=== PATIENT | female | born 1930 | race Caucasian/White ===

== ENCOUNTER → 2016-06-11 | Outpatient (CLI) | payer MEDICARE ==
[~2016-06-11] MED LIST: AMLODIPINE BESYL5 MG PO; ARIMIDEX1 MG PO; ASPIRIN PO; ASPIRIN81 M1 PO; ASPIRIN81 MG PO; ATENOLOL PO; AVALIDE 300-12.1 TAB PO; AVALIDE PO; AVANDIA PO; CALCIUM + D PO; CRESTOR PO; EYE VITAMIN PO; FISH OIL 1,2001 EAC2 PO; FLAGYL PO; GLUCOPHAGE XR500 MG PO; ICAPS MV TAB1 TAB.EC PO; IMDUR PO; IMDUR-ER30 MG PO; LEVOTHYROXINE88 MCG PO; LORTAB 5/500 TA1 TA2 PO; LOSARTAN POTAS100 MG PO; LOVASTATIN20 MG PO; METFORMIN HCL500 M1 PO; NEURONTIN PO; NEURONTIN600 MG PO; NEXIUM PO; NORVASC PO; PLAVIX PO; SYNTHROID PO; VITAMIN D1000 UNI1 PO; VITAMIN D50000 UNIT PO; [UNRECOGNIZED DRUG - OTHER] PO
--- NOTE | ~2016-06-11 | NM8 ---
[facility] A Service of [facility] RADIOLOGY TEXT RESULTS PATIENT: LUI HURLEY LOCATION: [facility] : [birth year] UNIT #: [id number] AGE: [address]: Teresita Toth MD SEX: F ORDER DR: [id number] [facility] [address] [place], [place] [address] [id number] O MR#: [id number] Acc #: [id number] NAME: LUI HURLEY : 1930 SEX: F STUDY DATE/TIME: 06/11/2016 9:47 UNIT: [facility] ROOM: STUDY DESCRIPTION: NM Bone or Joint Whole Body Attending Physician: Teresita Toth M.D. Referring Physician: Teresita Toth M.D. Ordering Physician: Teresita Toth M.D. Primary Care Physician: Teresita Toth M.D. MEDICAL IMAGING REPORT This report is preliminary unless electronic signature is present EXAM Whole-body bone scan. HISTORY 85-year-old female right leg pain for 3-4 weeks. Pain predominately around the hip and femoral head region. Difficulty moving leg. Symptoms for 3-4 weeks. History of breast cancer diagnosed several years ago. COMPARISON No recent correlative images are available. Comparison is made to a lumbar spine series 01/01/2014. FINDINGS Three-phase bone scan was performed over the hips and pelvis following the intravenous administration of 24 mCi technetium 99m MDP. Examination demonstrates some normal symmetric flow to the hips and pelvis. Immediate blood-pool imaging also appears normal. Delayed-phase imaging demonstrates activity within the bladder and a small amount of urinary contamination in the pelvic region. No definite osseous uptake is identified. No abnormal uptake identified within the hips. Minimal degenerative uptake within the posterior elements of the lumbar spine which does correspond to facet arthropathy as noted on the patient's prior conventional radiographs. IMPRESSION 1. No abnormal uptake identified within the right hip or pelvic region to account the patient's right-sided pain. 2. Mild degenerative uptake lower lumbar spine. Please note the patient does have significant multilevel facet arthropathy lower lumbar spine and 1 would question whether this could be a contributing factor to the patient's symptoms. [facility] A Service of [facility] RADIOLOGY TEXT RESULTS PATIENT: LUI HURLEY LOCATION: [facility] : [birth year] UNIT #: [id number] AGE: [address]: Teresita Toth MD SEX: F ORDER DR: Dictated by... Александр Lincoln M.D. THIS IS AN ELECTRONICALLY VERIFIED REPORT Александр Lincoln M.D. at 06/13/2016 4:53 PM RAMA/darien TD: 06/13/2016 10:46 JOB #: [id number] MEDICAL IMAGING REPORT COPY
== END | disposition home or self-care (01) ==
LOC: CNUC 08:52
DX: M25.559 Pain in unspecified hip (principal); M79.659 Pain in unspecified thigh; M47.816 Spondylosis without myelopathy or radiculopathy, lumbar region
CPT/HCPCS: 78306; A9503

== ENCOUNTER → 2016-07-23 | Outpatient (CLI) | payer MEDICARE ==
--- NOTE | ~2016-07-23 | MY11 ---
[facility] A Service of [facility] RADIOLOGY TEXT RESULTS PATIENT: LUI HURLEY LOCATION: [facility] : [birth year] UNIT #: [id number] AGE: [address]: Devante Mcdowell MD SEX: F ORDER DR: [id number] [facility] [address] [place], [place] [address] [id number] O MR#: [id number] Acc #: [id number] NAME: LUI HURLEY : 1930 SEX: F STUDY DATE/TIME: 07/23/2016 8:09 UNIT: [facility] ROOM: STUDY DESCRIPTION: MY Mammogram Screening Dig Yassine Attending Physician: Devante Mcdowell M.D. Referring Physician: Devante Mcdowell M.D. Ordering Physician: Devante Mcdowell M.D. Primary Care Physician: Teresita Toth M.D. MEDICAL IMAGING REPORT This report is preliminary unless electronic signature is present EXAM Bilateral digital screening mammogram with CAD. COMPARISON July 20, 2015, February 16, 2014, January 29, 2013, January 16, 2012, February 09, 2011, January 25, 2011, October 25, 2008, and May 31, 2006. INDICATION Breast cancer screening. 85-year-old asymptomatic female with a history of lumpectomy for left breast cancer in 2010. FINDINGS There are scattered fibroglandular densities. There are stable postsurgical changes of the left breast. There are no suspicious findings seen in either breast. IMPRESSION No mammographic evidence of malignancy. Stable postsurgical changes of the left breast. Annual screening mammography is recommended for as long as the patient is in good health ([employer] [employer]). Patients over the age of 40 are entered into a reminder system with target due date for the next mammogram. A result letter will also be sent to the patient. BIRADS: 2 Benign finding. Dictated by... Andreas Chicas M.D. THIS IS AN ELECTRONICALLY VERIFIED REPORT [facility] A Service of [facility] RADIOLOGY TEXT RESULTS PATIENT: LUI HURLEY LOCATION: [facility] : [birth year] UNIT #: [id number] AGE: [address]: Devante Mcdowell MD SEX: F ORDER DR: Andreas Chicas M.D. at 07/25/2016 10:58 AM YUNIEL/darien TD: 07/23/2016 10:44 JOB #: [id number] MEDICAL IMAGING REPORT Page 1 of 1 COPY
--- NOTE | ~2016-07-23 | NM8 ---
[facility] A Service of [facility] RADIOLOGY TEXT RESULTS PATIENT: LUI HURLEY LOCATION: [facility] : [birth year] UNIT #: [id number] AGE: [address]: Devante Mcdowell MD SEX: F ORDER DR: [id number] [facility] [address] [place], [place] [address] [id number] O MR#: [id number] Acc #: [id number] NAME: LUI HURLEY : 1930 SEX: F STUDY DATE/TIME: 07/23/2016 13:04 UNIT: [facility] ROOM: STUDY DESCRIPTION: UT Bone or Joint Whole Body Attending Physician: Devante Mcdowell M.D. Referring Physician: Devante Mcdowell M.D. Ordering Physician: Devante Mcdowell M.D. Primary Care Physician: Teresita Toth M.D. MEDICAL IMAGING REPORT This report is preliminary unless electronic signature is present EXAM Whole-body bone scan. HISTORY Breast cancer. Evaluate for metastatic disease. COMPARISON STUDIES 06/11/2016 bone scan and lumbar spine series 01/01/2014. TECHNIQUE The patient was given 27 mCi of technetium 99m MDP. 2-3 hours later, anterior and posterior images of the body were obtained with lateral views of the neck and oblique views of the ribs. FINDINGS There is some focal uptake in the lower left side of the cervical spine suggesting degenerative change. The patient had a head and neck angio 08/18/2014 and I believe that the uptake seen on the cervical spine and today corresponds with facet degenerative change at about C3-4 on the right. There is uptake on the right side of the lumbar spine which corresponds with the degenerative change seen on the 2014 plain films. IMPRESSION There is focal uptake in the right side of the midcervical spine and lumbar spine and I believe this is due to degenerative change. This correlates with lumbar images from [address] scan of the head and neck from 2014 does show some degenerative change in the right side of the neck. An isolated metastatic deposit in the lateral cervical spine would be very unusual. Otherwise, the study is negative. [facility] A Service of [facility] RADIOLOGY TEXT RESULTS PATIENT: LUI HURLEY LOCATION: [facility] : [birth year] UNIT #: [id number] AGE: [address]: Devante Mcdowell MD SEX: F ORDER DR: Dictated by... Bobby Todd M.D. THIS IS AN ELECTRONICALLY VERIFIED REPORT Bobby Todd M.D. at 07/25/2016 3:58 PM TARA/darien TD: 07/25/2016 11:57 JOB #: [id number] MEDICAL IMAGING REPORT Page 1 of 1 COPY
== END | disposition home or self-care (01) ==
LOC: CWCC 07:38
DX: Z12.31 Encounter for screening mammogram for malignant neoplasm of breast (principal); Z85.3 Personal history of malignant neoplasm of breast; M50.320 Other cervical disc degeneration, mid-cervical region, unspecified level; Z98.890 Other specified postprocedural states
CPT/HCPCS: 78306; A9503; G0202